=== PATIENT | male | born 1955 ===

== ENCOUNTER 2016-09-19 11:58 | Emergency (ER) | payer OTHER ==
[2016-09-19 12:13] VITALS: BMI 26.4
--- NOTE | 2016-09-19 13:15 | C.PDOC ---
History Of Present Illness 61 yo male w/o significant PMHx come in for evaluation of malaise, nasal congestion, intermittent nasal bleeding, dry cough for past few weeks. Pt also c /w lower back pain, intermittent for past 3 years. Otherwise, pt denies fever, chills, severe headache, visual changes, focal deficits, neck pain, drooling, dysphagia, dyspnea, CP, SOB, wheezing, abd. pain, N?V/D, UTI sx. Ambulate to ED for evaluation, not in nay apparent distress. Time Seen by Provider: 09/19/16 12:33 Chief Complaint (Nursing): Medical Clearance History Per: Patient Onset/Duration Of Symptoms: Intermittent Episodes Past Medical History Reviewed: Historical Data, Nursing Documentation, Vital Signs Vital Signs: Last Vital Signs Temp 98.0 F 09/19/16 12:15 Pulse 74 09/19/16 12:15 Resp 20 09/19/16 12:15 BP 136/82 09/19/16 12:15 Pulse Ox 96 09/19/16 14:05 - Medical History PMH: No Chronic Diseases Surgical History: Back Surgery Family History: States: No Known Family Hx - Social History Hx Tobacco Use: No Hx Alcohol Use: No Hx Substance Use: No - Immunization History Hx Tetanus Toxoid Vaccination: No Hx Influenza Vaccination: No Hx Pneumococcal Vaccination: No Review Of Systems Except As Marked, All Systems Reviewed And Found Negative. Constitutional: Positive for: Malaise. Negative for: Fever, Chills Eyes: Negative for: Vision Change ENT: Positive for: Nose Discharge, Nose Congestion. Negative for: Ear Discharge , Throat Pain, Throat Swelling Respiratory: Positive for: Cough. Negative for: Shortness of Breath, Wheezing Gastrointestinal: Negative for: Nausea, Vomiting, Abdominal Pain Genitourinary: Negative for: Dysuria, Frequency, Incontinence Musculoskeletal: Positive for: Back Pain Skin: Negative for: Rash Neurological: Negative for: Weakness, Numbness, Altered Mental Status, Headache , Dizziness Physical Exam - Physical Exam Appears: Well, Non-toxic, No Acute Distress Skin: Normal Color, Warm, Dry, No Rash Eye(s): bilateral: Normal Inspection Ear(s): Bilateral: Normal Nose: No Discharge, No Epistaxis, No Deformity, No Tenderness, Other (B/L buggy nasal mucosa) Oral Mucosa: Moist, No Drooling Tongue: Normal Appearing Lips: Normal Appearing Throat: Normal, No Erythema, No Exudate, No Drooling, Other (uvula midline, no edema.) Neck: Normal, Normal ROM, Supple Cardiovascular: Rhythm Regular, No Friction Rub, No Murmur, No JVD Respiratory: Normal Breath Sounds, No Stridor, No Wheezing Gastrointestinal/Abdominal: Normal Exam, Soft, No Tenderness, No Distention, No Guarding Back: Normal Inspection, No CVA Tenderness Extremity: Normal ROM, No Pedal Edema, No Deformity Neurological/Psych: Oriented x3, Normal Speech ED Course And Treatment O2 Sat by Pulse Oximetry: 96 Pulse Ox Interpretation: Normal - Radiology CXR: Interpreted by Me, Viewed By Me CXR Interpretation: Yes: No Acute Disease Progress Note: On re-evaluation, pt is afebrile, hemodynamicaly stable. Non- toxic. Tolerate PO well in ED. PulseOx 96% RA. ENT: no acute finidngs. Neck : (-) meningeal sign. Lungs: CTA B/L, BS equal B/L. CVS: (+)S1S2, reg. (-) murmur. ABd: benign. Neurologicaly intact. CXR review- normal study. UA- noraml results. Pt has clinical findings c/w URI r/w bronchitis. Pt advise dand ref. to F/u with PMD in 2-3 days for re-eavl. return if any new changes. Disposition Counseled Patient/Family Regarding: Studies Performed, Diagnosis, Need For Followup, Rx Given - Disposition Referrals: [facility] [Outside] Disposition Time: 14:02 Condition: STABLE Additional Instructions: Encourage fluids Vaseline nasal mucosa Take medication as prescribed Follow up with PMD IN 2-3 days for re-evaluation. Return to ED if any worsening or new changes. Prescriptions: Prednisone [Deltasone] 20 mg PO DAILY #3 tablet traMADol [Ultram] 50 mg PO TID #7 tab Azithromycin [Zithromax] 250 mg PO DAILY #4 tab Instructions: Acute Bronchitis (ED), Back Pain (ED) Print Language: ROMANSH - Clinical Impression Clinical Impression: Bronchitis, Back pain
--- NOTE | 2016-09-19 13:36 | RAD ---
HISTORY: Cough COMPARISON: No prior. TECHNIQUE: Chest PA and lateral FINDINGS: LUNGS: The lungs are well inflated and clear. PLEURA: No significant pleural effusion identified. No pneumothorax apparent. CARDIOVASCULAR: The heart is normal in size. Atherosclerotic aortic arch calcifications are present. OSSEOUS STRUCTURES: No significant abnormalities. VISUALIZED UPPER ABDOMEN: Normal. OTHER FINDINGS: None. IMPRESSION: No active pulmonary disease.
[2016-09-19 14:02] LABS: URINE BILIRUBIN NEGATIVE (NEGATIVE); URINE BLOOD NEGATIVE (NEGATIVE); URINE COLOR Yellow (YELLOW); URINE GLUCOSE (UA) NORMAL (Normal); URINE KETONE NEGATIVE (NEGATIVE); URINE LEUKOCYTE ESTERASE TRACE Leu/uL (Negative); URINE PROTEIN NEGATIVE (NEGATIVE); URINE UROBILINOGEN NORMAL mg/dL (0.2-1.0); WBC URINE 3 /hpf (0-5)
[2016-09-19 14:15] VITALS: BP 143/80; PULSE 62; RESP 18; TEMP 98.4; O2SAT 98
== END 2016-09-19 14:17 | disposition home or self-care (01) ==
LOC: C.ER 11:58
DX: J40 Bronchitis, not specified as acute or chronic (principal); M54.5 Low back pain